=== PATIENT | male | born 1955 | race African-American/Black ===

== ENCOUNTER 2017-10-25 17:09 | Inpatient (IN) | payer MEDICARE ==
[~2017-10-25] VITALS: Ht 170.2 cm; Wt 78.2 kg
[2017-10-25 18:18] LABS: Basophils # (auto) 0.1 uL; Basophils % (auto) 0.8 % (0.0-2.0); Eosinophils # (auto) 0 uL; Hematocrit 37.5 % (41.0-53.0); Hemoglobin 12.6 g/dL (13.5-17.5); Lymphocytes # (auto) 0.9 uL; Lymphocytes % (auto) 8.7 % (10.0-50.0); Mean Corpuscular Hemoglobin 29.2 pg (28.0-32.0); Mean Corpuscular Hgb Conc. 33.5 g/dL (32.0-36.0); Mean Corpuscular Volume 87.1 fL (80.0-100.0); Monocytes # (auto) 0.2 uL; Monocytes % (auto) 1.7 % (0.0-12.0); Neutrophils # (auto) 8.7 uL; Neutrophils % (auto) 88.8 % (37.0-80.0); Platelet Count (auto) 358 10^3/uL (140-450); Red Blood Cells 4.31 10^6/uL (4.5-5.90); Red Cell Distribution Width 15.3 % (11.8-14.3); White Blood Cell 9.8 10^3/uL (4.4-10.8)
[2017-10-25 18:40] LABS: Albumin 3.7 g/dL (3.4-5.0); BUN/Creatinine Ratio 19.7; Bilirubin, Total 0.6 mg/dL (0.2-1.0); Calcium 9.9 mg/dL (8.5-10.1); Magnesium 2.1 mg/dL (1.6-2.6); Potassium 4.3 mmol/L (3.5-5.1); Total Protein 9.4 g/dL (6.4-8.2)
[2017-10-25] MEDS ORDERED: cloNIDine HCL 0.1 MG TAB PO ONE (21:15)
[2017-10-25 22:15] LABS: Urine Bacteria FEW /hpf (None Seen); Urine Blood TRACE /uL (Negative); Urine Hyaline Cast FEW /lpf (0 - 2); Urine Mucus FEW (None Seen); Urine Specific Gravity 1.027 (1.001-1.035); Urine WBC 6 /hpf (0 - 3)
[2017-10-26] MEDS ORDERED: SODIUM CHLORIDE 0.9% 1,000 ML IV ONE (00:15)
[2017-10-26] MEDS ORDERED: ONDANSETRON HCL 4 MG/2 ML VIAL IV ONE (00:15)
[2017-10-26 01:28] LABS: INR 1.05 (0.9-1.15); Partial Thromboplastin Time 26.8 sec (22.64-33.71); Prothrombin Time 11.4 sec (9.37-12.3)
[2017-10-26] MEDS ORDERED: NITROGLYCERIN 0.4 MG SL TAB SL PRN (03:30)
[2017-10-26] MEDS ORDERED: ACETAMINOPHEN 325 MG TAB PO PRN (03:30)
[2017-10-26] MEDS ORDERED: cloNIDine HCL 0.1 MG TAB PO PRN (03:30)
[2017-10-26] MEDS ORDERED: cefTRIAXone 1GM/10ml IVPUSH 10 ML IV ONE (03:30)
[2017-10-26] MEDS ORDERED: ALBUTEROL SULF 2.5 MG/0.5ML(0.5%) NEB SOLN NEB PRN (03:30)
[2017-10-26] MEDS ORDERED: DOCUSATE SOD 100 MG CAP PO PRN (03:30)
[2017-10-26] MEDS ORDERED: HYDROcodone-ACET 5/325MG TAB PO PRN (03:30)
[2017-10-26] MEDS ORDERED: MORPHINE SULFATE 4 MG/ML SYR/VIAL IV PRN (03:30)
[2017-10-26] MEDS ORDERED: guaiFENesin-DM 100/10mg/5ml SYR PO PRN (03:30)
[2017-10-26] MEDS ORDERED: ONDANSETRON HCL 4 MG/2 ML VIAL IV PRN (03:30)
[2017-10-26] MEDS: SODIUM CHLORIDE 0.9% 1,000 ML IV SCH ×2 (04:40→17:27)
[2017-10-26] MEDS ORDERED: DEXTROSE (50%) 50ML SYRG IV PRN (05:30)
[2017-10-26] MEDS: InsuLIN REG 1unit/0.01ml Soln (100units/ml) SC SCH ×3 (06:00→17:40)
[2017-10-26] MEDS: ACCU-CHEK COMFORT CURVE STRIP VI SCH ×3 (06:08→17:39)
[2017-10-26] MEDS: ASPirin 81 mg TAB PO SCH (10:15)
[2017-10-26] MEDS: FAMOTIDINE 20 MG TAB PO SCH ×2 (10:15→21:50)
[2017-10-26] MEDS: ENOXAPARIN SOD 40 MG/0.4 ML SYRINGE SC SCH (10:15)
[2017-10-26] MEDS ORDERED: AZITHROMYCIN 500MG/ 250ML 250 ML IV ONE (14:45)
[2017-10-26] MEDS: HYDROcodone-ACET 10/325MG TAB PO PRN (16:01)
[2017-10-26] MEDS ORDERED: PREG75CA PO (18:10)
[2017-10-26] MEDS ORDERED: MORP-110 PO (18:13)
[2017-10-26] MEDS ORDERED: METF-370 PO (18:13)
[2017-10-26] MEDS ORDERED: LISI40TA PO (18:13)
[2017-10-26] MEDS: cefTRIAXone 1GM/10ml IVPUSH 10 ML IV SCH (21:49)
[2017-10-26] MEDS: PREGABALIN 25 MG CAP PO SCH (21:50)
[2017-10-26 22:00] VITALS: BP 140/73
[2017-10-26] MEDS: TEMAZEPAM 15 MG CAP PO PRN (22:10)
[2017-10-27] MEDS: ACCU-CHEK COMFORT CURVE STRIP VI SCH ×5 (00:17→23:32)
[2017-10-27] MEDS: SODIUM CHLORIDE 0.9% 1,000 ML IV SCH ×4 (04:38→23:33)
[2017-10-27 05:09] VITALS: BP 150/73
[2017-10-27] MEDS: PREGABALIN 25 MG CAP PO SCH ×3 (05:36→21:10)
[2017-10-27] MEDS: InsuLIN REG 1unit/0.01ml Soln (100units/ml) SC SCH ×5 (05:37→23:32)
[2017-10-27 07:09] LABS: Basophils # (auto) 0.1 uL; Basophils % (auto) 1.2 % (0.0-2.0); Eosinophils # (auto) 0 uL; Eosinophils % (auto) 0.3 % (0.0-7.0); Hematocrit 34.5 % (41.0-53.0); Hemoglobin 11.4 g/dL (13.5-17.5); Lymphocytes # (auto) 2.5 uL; Lymphocytes % (auto) 34.4 % (10.0-50.0); Mean Corpuscular Hemoglobin 28.6 pg (28.0-32.0); Mean Corpuscular Hgb Conc. 33.1 g/dL (32.0-36.0); Mean Corpuscular Volume 86.4 fL (80.0-100.0); Monocytes # (auto) 0.7 uL; Monocytes % (auto) 9.1 % (0.0-12.0); Nucleated Red Blood Cells % 0.1 %; Platelet Count (auto) 275 10^3/uL (140-450); Red Blood Cells 3.99 10^6/uL (4.5-5.90); Red Cell Distribution Width 14.9 % (11.8-14.3); White Blood Cell 7.3 10^3/uL (4.4-10.8)
[2017-10-27 07:22] LABS: Albumin 2.7 g/dL (3.4-5.0); BUN/Creatinine Ratio 18.7; Bilirubin, Total 0.5 mg/dL (0.2-1.0); Calcium 8.8 mg/dL (8.5-10.1); Potassium 4.3 mmol/L (3.5-5.1); Total Protein 6.9 g/dL (6.4-8.2)
[2017-10-27 08:00] VITALS: BP 156/82
[2017-10-27 08:20] VITALS: BP 156/82
[2017-10-27] MEDS: ENOXAPARIN SOD 40 MG/0.4 ML SYRINGE SC SCH (10:04)
[2017-10-27] MEDS: FAMOTIDINE 20 MG TAB PO SCH ×2 (10:05→21:11)
[2017-10-27] MEDS: ASPirin 81 mg TAB PO SCH (10:05)
[2017-10-27] MEDS: LISINOPRIL 20 MG TAB PO SCH (10:05)
[2017-10-27] MEDS: AZITHROMYCIN 500MG/ 250ML 250 ML IV SCH (10:05)
[2017-10-27 12:20] VITALS: BP 142/85
[2017-10-27 16:22] VITALS: BP 155/71
[2017-10-27] MEDS: HYDROcodone-ACET 10/325MG TAB PO PRN (21:02)
[2017-10-27] MEDS: TEMAZEPAM 15 MG CAP PO PRN (21:10)
[2017-10-27] MEDS: cefTRIAXone 1GM/10ml IVPUSH 10 ML IV SCH (21:11)
[2017-10-27 21:38] VITALS: BP 148/72
[2017-10-28] MEDS: ACCU-CHEK COMFORT CURVE STRIP VI SCH (05:23)
[2017-10-28] MEDS: InsuLIN REG 1unit/0.01ml Soln (100units/ml) SC SCH (05:24)
[2017-10-28 05:25] VITALS: BP 141/78
[2017-10-28] MEDS: HYDROcodone-ACET 10/325MG TAB PO PRN (05:25)
[2017-10-28] MEDS: PREGABALIN 25 MG CAP PO SCH (05:25)
[2017-10-28] MEDS: SODIUM CHLORIDE 0.9% 1,000 ML IV SCH (05:26)
[2017-10-28 06:12] LABS: Basophils # (auto) 0.1 uL; Eosinophils # (auto) 0.1 uL; Eosinophils % (auto) 0.8 % (0.0-7.0); Hemoglobin 11.2 g/dL (13.5-17.5); Lymphocytes # (auto) 2.8 uL; Lymphocytes % (auto) 43.7 % (10.0-50.0); Mean Corpuscular Hemoglobin 28.4 pg (28.0-32.0); Mean Corpuscular Hgb Conc. 32.8 g/dL (32.0-36.0); Mean Corpuscular Volume 86.4 fL (80.0-100.0); Monocytes # (auto) 0.7 uL; Monocytes % (auto) 10.2 % (0.0-12.0); Neutrophils # (auto) 2.8 uL; Neutrophils % (auto) 44.3 % (37.0-80.0); Nucleated Red Blood Cells % 0.2 %; Platelet Count (auto) 269 10^3/uL (140-450); Red Blood Cells 3.94 10^6/uL (4.5-5.90); Red Cell Distribution Width 14.6 % (11.8-14.3); White Blood Cell 6.4 10^3/uL (4.4-10.8)
[2017-10-28 06:45] LABS: Albumin 2.4 g/dL (3.4-5.0); BUN/Creatinine Ratio 16.3; Bilirubin, Total 0.3 mg/dL (0.2-1.0); Calcium 8.1 mg/dL (8.5-10.1); Potassium 4.6 mmol/L (3.5-5.1); Total Protein 6.1 g/dL (6.4-8.2)
[2017-10-28 09:00] VITALS: BP 153/72
[2017-10-28] MEDS: FAMOTIDINE 20 MG TAB PO SCH (09:35)
[2017-10-28] MEDS: ASPirin 81 mg TAB PO SCH (09:36)
[2017-10-28] MEDS: LISINOPRIL 20 MG TAB PO SCH (09:36)
[2017-10-28] MEDS: AZITHROMYCIN 500MG/ 250ML 250 ML IV SCH (09:37)
[2017-10-28] MEDS: ENOXAPARIN SOD 40 MG/0.4 ML SYRINGE SC SCH (09:37)
[2017-10-28 11:15] VITALS: BP 153/72
[2017-11-15] MEDS ORDERED: PANT40TA2 PO (11:22)
== END 2017-10-28 12:00 | disposition home or self-care (01) | DRG 438 ==
LOC: ER 17:15 → OVERFLOW 17:16 → EAST 10-26 17:55
PROVIDERS: ADMIT Nurse Practitioner; ATTEND Family Medicine
DX: K85.90 Acute pancreatitis without necrosis or infection, unspecified (principal); J18.1 Lobar pneumonia, unspecified organism; E11.22 Type 2 diabetes mellitus with diabetic chronic kidney disease; E11.65 Type 2 diabetes mellitus with hyperglycemia; N39.0 Urinary tract infection, site not specified; N18.3 Chronic kidney disease, stage 3 (moderate); R74.8 Abnormal levels of other serum enzymes; M25.562 Pain in left knee; M54.2 Cervicalgia; G47.00 Insomnia, unspecified; K59.00 Constipation, unspecified; G89.29 Other chronic pain; I12.9 Hypertensive chronic kidney disease with stage 1 through stage 4 chronic kidney disease, or unspecified chronic kidney disease; Z79.4 Long term (current) use of insulin
CPT/HCPCS: 36415; 71046; 74176; 80053; 81001; 82962; 83036; 83690; 83735; 83880; 84443; 84484; 85025; 85379; 85610; 85730; 87086; 87804; 93005; 96361; 96365; 96372; 96375; J2405

== ENCOUNTER 2018-01-22 00:01 | Emergency (ER) | payer MEDICARE, OTHER ==
[~2018-01-22] VITALS: Ht 170.2 cm; Wt 81.2 kg
[~2018-01-22 00:01] MED LIST: LISI40TA PO; METF-370 PO; MORP-110 PO; PANT40TA2 PO; PREG75CA PO
[2018-01-22] MEDS ORDERED: cloNIDine HCL 0.1 MG TAB ONE (00:11)
[2018-01-22] MEDS ORDERED: cloNIDine HCL 0.1 MG TAB PO ONE (00:15)
[2018-01-22 01:45] LABS: Basophils # (auto) 0.1 uL; Basophils % (auto) 0.6 % (0.0-2.0); Eosinophils # (auto) 0 uL; Hemoglobin 14.1 g/dL (13.5-17.5); Lymphocytes # (auto) 1.4 uL; Lymphocytes % (auto) 15.5 % (10.0-50.0); Mean Corpuscular Hemoglobin 27.5 pg (28.0-32.0); Mean Corpuscular Hgb Conc. 32.1 g/dL (32.0-36.0); Mean Corpuscular Volume 85.5 fL (80.0-100.0); Monocytes # (auto) 0.3 uL; Monocytes % (auto) 2.7 % (0.0-12.0); Neutrophils # (auto) 7.5 uL; Neutrophils % (auto) 81.2 % (37.0-80.0); Nucleated Red Blood Cells % 0.1 %; Platelet Count (auto) 241 10^3/uL (140-450); Red Blood Cells 5.15 10^6/uL (4.5-5.90); Red Cell Distribution Width 16.5 % (11.8-14.3); White Blood Cell 9.2 10^3/uL (4.4-10.8)
[2018-01-22 01:49] LABS: BUN/Creatinine Ratio 14.6; Calcium 9.4 mg/dL (8.5-10.1); Magnesium 1.9 mg/dL (1.6-2.6); Potassium 3.6 mmol/L (3.5-5.1)
[2018-01-22 01:54] LABS: Bilirubin, Total 0.7 mg/dL (0.2-1.0); Total Protein 8.9 g/dL (6.4-8.2)
[2018-01-22] MEDS ORDERED: SODIUM CHLORIDE 0.9% 1,000 ML IV ONE (06:42)
[2018-01-22] MEDS ORDERED: ASPirin 81 mg TAB PO ONE (06:45)
[2018-01-22 08:17] VITALS: BP 156/78
[2018-01-22] MEDS ORDERED: hydrALAZINE HCL 20 MG/ML VL IV ONE (09:15)
== END 2018-01-22 09:25 | disposition home or self-care (01) ==
LOC: ER 00:04
DX: R07.89 Other chest pain (principal); R11.2 Nausea with vomiting, unspecified; I10 Essential (primary) hypertension; E11.9 Type 2 diabetes mellitus without complications
CPT/HCPCS: 36415; 71045; 80053; 83735; 83880; 84484; 85025; 93005; 96360; 96361; 99285; J7030

== ENCOUNTER 2018-09-12 22:43 | Emergency (ER) | payer MEDICARE, OTHER ==
[~2018-09-12] VITALS: Ht 170.2 cm; Wt 74.8 kg
[~2018-09-12 22:43] MED LIST changes: +ATOR20TA50 PO; +FURO40TA4 PO; -LISI40TA PO; +MET5XLT PO; +POTA20TA53 PO; +PRAS10TA6 PO; +RIV20T PO; +SACU1TAB PO
[2018-09-12] MEDS ORDERED: CALCIUM CHLOR(10%) 100MG/ML 10ML SYRINGE IV ONE (22:44)
[2018-09-12] MEDS ORDERED: EPINEPHrine HCL 1 MG/10 ML SYRG IV ONE (22:44)
[2018-09-12] MEDS ORDERED: DEXTROSE (50%) 50ML SYRG IV ONE (22:44)
[2018-09-12] MEDS ORDERED: NALOXONE HCL 1MG/ML 2ML SYRINGE IV ONE (22:44)
[2018-09-12] MEDS ORDERED: SODIUM BICARBONATE 8.4% INJ 50ML SYRINGE IV ONE (22:44)
[2018-09-12 22:46] VITALS: BP 110/70
[2018-09-12 23:24] LABS: Basophils # (auto) 0 uL; Basophils % (auto) 0.2 % (0.0-2.0); Eosinophils # (auto) 0.1 uL; Hemoglobin 8.6 g/dL (13.5-17.5); Mean Corpuscular Volume 93.3 fL (80.0-100.0); White Blood Cell 19.8 10^3/uL (4.4-10.8)
[2018-09-12 23:25] LABS: Eosinophils % (auto) 0.5 % (0.0-7.0); Hematocrit 30.6 % (41.0-53.0); Lymphocytes # (auto) 1.2 uL; Lymphocytes % (auto) 6.3 % (10.0-50.0); Mean Corpuscular Hemoglobin 26.2 pg (28.0-32.0); Mean Corpuscular Hgb Conc. 28.1 g/dL (32.0-36.0); Monocytes # (auto) 0.7 uL; Monocytes % (auto) 3.3 % (0.0-12.0); Neutrophils # (auto) 17.8 uL; Neutrophils % (auto) 89.7 % (37.0-80.0); Platelet Count (auto) 115 10^3/uL (140-450); Red Blood Cells 3.27 10^6/uL (4.5-5.90); Red Cell Distribution Width 18.7 % (11.8-14.3)
[2018-09-12] MEDS ORDERED: DEXTROSE 50% SYRINGE 100 ML IV ONE (23:26)
[2018-09-12] MEDS ORDERED: EPINEPHrine HCL 1 MG/10 ML SYRG ONE (23:29)
[2018-09-12] MEDS ORDERED: SODIUM BICARBONATE 8.4% INJ 50ML SYRINGE ONE (23:30)
[2018-09-12 23:32] LABS: Albumin 2.4 g/dL (3.4-5.0); Anion Gap 35 (5-15); BUN/Creatinine Ratio 13.8; Blood Alcohol < 3.0 mg/dL (0-5); Calcium 7.7 mg/dL (8.5-10.1); Chloride 94 mmol/L (98-107); GFR African American 11 mL/min; GFR Non-African American 9 mL/min; Glucose 258 mg/dL (74-106); Sodium 134 mmol/L (136-145)
[2018-09-12] MEDS ORDERED: DEXTROSE 50% SYRINGE 150 ML IV ONE (23:33)
[2018-09-12 23:42] LABS: Alkaline Phosphatase 252 U/L (45-117); Total Protein 6.4 g/dL (6.4-8.2)
[2018-09-12 23:47] LABS: Lactic Acid w/Reflex 21.5 mmol/L (0.4-2.0)
[2018-09-12 23:49] LABS: Potassium 6.3 mmol/L (3.5-5.1)
[2018-09-12 23:50] LABS: Blood Urea Nitrogen 91 mg/dL (7-18); Carbon Dioxide 5 mmol/L (21-32)
[2018-09-12 23:55] LABS: Alanine Aminotransferase 6136 U/L (16-61); INR > 10 (0.9-1.15)
[2018-09-13 00:34] LABS: Aspartate Aminotransferase 15617 U/L (15-37)
== END 2018-09-13 07:47 | disposition expired ==
LOC: EDUNIT# 22:43 → ER 22:43
DX: I46.9 Cardiac arrest, cause unspecified (principal); R41.82 Altered mental status, unspecified; I11.0 Hypertensive heart disease with heart failure; I50.9 Heart failure, unspecified; E11.9 Type 2 diabetes mellitus without complications; E78.5 Hyperlipidemia, unspecified; K21.9 Gastro-esophageal reflux disease without esophagitis; Z79.899 Other long term (current) drug therapy
CPT/HCPCS: 31500; 36415; 70450; 71045; 72125; 80053; 80320; 82010; 82140; 82962; 83605; 83735; 83880; 84484; 85025; 85379; 85610; 85730; 92950; 99285; J0171; J2310; J7042; 93005